=== PATIENT | female | born 1965 | race Caucasian/White ===

== ENCOUNTER 2020-12-17 01:05 | Emergency (ER) | payer OTHER ==
[2020-12-17 01:31] LABS: BASO % 0.4 % (0.0-1.0); EOS # 0.1 10*3/uL (0.0-0.4); EOS % 1.6 % (1.0-4.0); HEMATOCRIT 37.9 % (37.0-47.0); LYMPH # 2.3 10*3/uL (1.3-4.4); LYMPH % 44.3 % (27.0-41.0); MEAN CELL VOLUME 88.8 fl (81.0-99.0); MEAN CORPUSCULAR HGB 28.1 pg (27.0-31.0); MEAN CORPUSCULAR HGB CONC 31.7 g/dl (33.0-37.0); MEAN PLATELET VOLUME 10.4 fl (9.6-12.3); MONO # 0.5 10*3/uL (0.1-1.0); MONO % 9.1 % (3.0-9.0); NEUT # 2.2 10*3/uL (2.3-7.9); NEUT % 43.6 % (47.0-73.0); PLATELET COUNT AUTOMATED 211 10*3/uL (130-400); RED BLOOD COUNT 4.27 10*6/uL (4.10-5.10); RED CELL DISTRI WIDTH 13.5 % (0-14.5); WHITE BLOOD COUNT 5.1 10*3/uL (4.8-10.8)
[2020-12-17 01:49] LABS: ALKALINE PHOSPHATASE 79 U/L (45-117); BUN 17 mg/dl (7-24); CHLORIDE 107 mmol/L (98-107); CREATININE 0.86 mg/dL (0.55-1.02); SGOT/AST 21 IU/L (3-35); SGPT/ALT 30 U/L (12-78); SODIUM 140 mmol/L (136-145)
== END 2020-12-17 02:56 | disposition short-term general hospital (02) ==
LOC: ED 01:05
PROVIDERS: Internal Medicine
DX: I62.9 Nontraumatic intracranial hemorrhage, unspecified (principal); E87.6 Hypokalemia